=== PATIENT | male | born 1980 | race African-American/Black ===

== ENCOUNTER 2018-10-31 22:23 | Emergency (ER) | payer OTHER ==
[~2018-10-31] VITALS: Ht 188 cm; Wt 154.7 kg
[2018-10-31 22:23] VITALS: BP 170/91
[2018-10-31 22:46] LABS: BASO % 0 % (0-3); EOS # 0.1 x10^3/uL (0.0-0.7); EOS % 2 % (0-3); HEMATOCRIT 42.7 % (39.0-53.0); HEMOGLOBIN 14.5 g/dL (13.0-17.5); LYMPH # 1.7 x10^3/uL (1.0-4.8); LYMPH % 23 % (24-48); MEAN CORPUSCULAR HEMOGLOBIN 30 pg (25-35); MEAN CORPUSCULAR HGB CONC 34 g/dL (31-37); MEAN CORPUSCULAR VOLUME 87 fL (79-100); MONO # 0.8 x10^3/uL (0.0-1.1); MONO % 11 % (0-9); NEUT # 4.8 x10^3uL (1.8-7.7); NEUT % 64 % (31-73); PLATELET COUNT 249 x10^3/uL (140-400); RED BLOOD COUNT 4.93 x10^6/uL (4.30-5.70); RED CELL DISTRIBUTION WIDTH 15.3 % (11.5-14.5); WHITE BLOOD COUNT 7.5 x10^3/uL (4.0-11.0)
[2018-10-31 22:54] LABS: CALCIUM 8.9 mg/dL (8.5-10.1); CREATININE 1.5 mg/dL (0.7-1.3); GFR 52.1; POTASSIUM 3.9 mmol/L (3.5-5.1)
[2018-10-31 22:56] LABS: PROTHROMBIN TIME PATIENT 12.6 SEC (11.7-14.0)
[2018-10-31 22:59] LABS: ALBUMIN 4.1 g/dL (3.4-5.0); ALBUMIN/GLOBULIN RATIO 1.1 (1.0-1.7); MAGNESIUM 1.9 mg/dL (1.8-2.4); TOTAL BILIRUBIN 0.4 mg/dL (0.2-1.0); TOTAL PROTEIN 7.7 g/dL (6.4-8.2)
--- NOTE | 2018-10-31 23:20 | RAD ---
CT head without contrast: Reason for examination: Ataxia gait. No previous examinations for comparison. Axial images were obtained through the brain. No contrast was administered. Exposure: One or more of the following individualized dose reduction techniques were utilized for this examination: 1. Automated exposure control 2. Adjustment of the mA and/or kV according to patient size 3. Use of iterative reconstruction technique. Ventricular systems are symmetric and not abnormally dilated. No midline shift is seen. There is no evidence of intracranial hemorrhage. There is some encephalomalacia in the inferior right cerebellar hemisphere with evidence of previous craniotomy. No acute infarcts, masses or edema are seen. The paranasal sinuses are clear. No abnormalities are seen at the orbits. No acute bony abnormalities are seen. IMPRESSION: Encephalomalacia in the right cerebellar hemisphere inferiorly with adjacent craniotomy defect. Recommend clinical correlation. No acute intracranial abnormality evident. Electronically signed by: Zully Márquez MD (10/31/2018 11:18 PM) [facility]
--- NOTE | 2018-11-01 00:12 | PHYS DOC ---
Past Medical History Past Medical History: Diabetes-Type I, High Cholesterol, Hypertension, Stroke Past Surgical History: No Surgical History Alcohol Use: None Drug Use: None Adult General Chief Complaint Chief Complaint: NEURO SYMPTOMS/DEFICITS [facility] Patient is a 37-year-old male who presents with complaint of onset of what patient describes as unsteady gait that started at about 6 PM this evening. Patient states that he was concerned because he was treated for a cerebellar infarct last year. He denies any lateralizing weakness but does state that he feels a little bit off balance. He denies any speech deficits. Patient states his symptoms are a little bit improved over when they had first started. He denies any sensory deficits. He also denies any headache, fever, chest pain or shortness of breath. Review of Systems Review of Systems Constitutional: Denies fever or chills [] Eyes: Denies change in visual acuity, redness, or eye pain [] Respiratory: Denies cough or shortness of breath [] Cardiovascular: No additional information not addressed in HPI [] GI: Denies abdominal pain, nausea, vomiting or diarrhea [] Neurologic: Denies headache, focal weakness or sensory changes. Reports unsteady /ataxic gait. [] All other systems were reviewed and found to be within normal limits, except as documented in this note. Allergies Allergies Allergies Coded Allergies Type Severity Reaction Last Updated Verified No Known Drug Allergies 10/31/18 No Physical Exam Physical Exam Constitutional: Well developed, well nourished, no acute distress, non-toxic appearance. [] HENT: Normocephalic, atraumatic, bilateral external ears normal, oropharynx moist, no oral exudates, nose normal. [] Eyes: PERRLA, EOMI, conjunctiva normal, no discharge. [] Neck: Normal range of motion, no tenderness, supple. [] Cardiovascular: Regular rate and rhythm[] Lungs & Thorax: Bilateral breath sounds clear to auscultation [] Abdomen: Bowel sounds normal, soft, no tenderness. [] Skin: Warm, dry, no erythema, no rash. [] Extremities: No tenderness, no cyanosis, no clubbing, ROM intact. [] Neurologic: Alert and oriented X 3, normal motor function, normal sensory function, no focal deficits noted. [] Current Patient Data Vital Signs Vital Signs Date Time Temp Pulse Resp B/P (MAP) Pulse Ox O2 Delivery O2 Flow Rate FiO2 4/16/19 22:23 98.2 58 16 170/91 (117) 99 Room Air 98.2 Lab Values Laboratory Tests Test 10/31/18 22:29 10/31/18 22:35 Glucose (Fingerstick) 132 mg/dL (70-99) H White Blood Count 7.5 x10^3/uL (4.0-11.0) Red Blood Count 4.93 x10^6/uL (4.30-5.70) Hemoglobin 14.5 g/dL (13.0-17.5) Hematocrit 42.7 % (39.0-53.0) Mean Corpuscular Volume 87 fL (79-100) Mean Corpuscular Hemoglobin 30 pg (25-35) Mean Corpuscular Hemoglobin Concent 34 g/dL (31-37) Red Cell Distribution Width 15.3 % (11.5-14.5) H Platelet Count 249 x10^3/uL (140-400) Neutrophils (%) (Auto) 64 % (31-73) Lymphocytes (%) (Auto) 23 % (24-48) L Monocytes (%) (Auto) 11 % (0-9) H Eosinophils (%) (Auto) 2 % (0-3) Basophils (%) (Auto) 0 % (0-3) Neutrophils # (Auto) 4.8 x10^3uL (1.8-7.7) Lymphocytes # (Auto) 1.7 x10^3/uL (1.0-4.8) Monocytes # (Auto) 0.8 x10^3/uL (0.0-1.1) Eosinophils # (Auto) 0.1 x10^3/uL (0.0-0.7) Basophils # (Auto) 0.0 x10^3/uL (0.0-0.2) Prothrombin Time 12.6 SEC (11.7-14.0) Prothrombin Time INR 1.0 (0.8-1.1) Sodium Level 143 mmol/L (136-145) Potassium Level 3.9 mmol/L (3.5-5.1) Chloride Level 105 mmol/L (98-107) Carbon Dioxide Level 26 mmol/L (21-32) Anion Gap 12 (6-14) Blood Urea Nitrogen 25 mg/dL (8-26) Creatinine 1.5 mg/dL (0.7-1.3) H Estimated GFR (Cockcroft-Gault) 52.1 BUN/Creatinine Ratio 17 (6-20) Glucose Level 133 mg/dL (70-99) H Calcium Level 8.9 mg/dL (8.5-10.1) Magnesium Level 1.9 mg/dL (1.8-2.4) Total Bilirubin 0.4 mg/dL (0.2-1.0) Aspartate Amino Transferase (AST) 28 U/L (15-37) Alanine Aminotransferase (ALT) 49 U/L (16-63) Alkaline Phosphatase 69 U/L (46-116) Total Protein 7.7 g/dL (6.4-8.2) Albumin 4.1 g/dL (3.4-5.0) Albumin/Globulin Ratio 1.1 (1.0-1.7) Laboratory Tests 10/31/18 22:35 Laboratory Tests 10/31/18 22:35 EKG EKG [] Radiology/Procedures Radiology/Procedures [] Impressions: PROCEDURE: CT HEAD WO CONTRAST CT head without contrast: Reason for examination: Ataxia gait. No previous examinations for comparison. Axial images were obtained through the brain. No contrast was administered. Exposure: One or more of the following individualized dose reduction techniques were utilized for this examination: 1. Automated exposure control 2. Adjustment of the mA and/or kV according to patient size 3. Use of iterative reconstruction technique. Ventricular systems are symmetric and not abnormally dilated. No midline shift is seen. There is no evidence of intracranial hemorrhage. There is some encephalomalacia in the inferior right cerebellar hemisphere with evidence of previous craniotomy. No acute infarcts, masses or edema are seen. The paranasal sinuses are clear. No abnormalities are seen at the orbits. No acute bony abnormalities are seen. IMPRESSION: Encephalomalacia in the right cerebellar hemisphere inferiorly with adjacent craniotomy defect. Recommend clinical correlation. No acute intracranial abnormality evident. Electronically signed by: Zully Márquez MD (10/31/2018 11:18 PM) [facility] Course & Med Decision Making Course & Med Decision Making Pertinent Labs and Imaging studies reviewed. (See chart for details) Upon completion of workup, findings of workup have been reviewed with patient. I have recommended the patient being admitted to this facility for further evaluation along with evaluation by neurologist in the morning. Patient is refusing admission to this facility and is requesting to sign out AGAINST MEDICAL ADVICE. Patient states that he will just come back in the morning if symptoms are not resolved. Dragon Disclaimer Dragon Disclaimer This electronic medical record was generated, in whole or in part, using a voice recognition dictation system. Departure Departure Impression: Primary Impression: Ataxic gait Disposition: 07 AGAINST MEDICAL ADVICE Condition: GOOD Referrals: NO PCP (PCP) ANJALI SEN Jr. DO Nov 01, 2018 00:12
--- NOTE | 2018-11-01 05:09 | EKG ---
[facility] [address] [place] [address] Test Date: 2018-10-31 Test Time: 22:50:40 Pat Name: NILAM GARCIA Department: Room: Gender: M Through Operator: : 1980 Requested By: ANJALI SEN Order Number: [id number] Reading MD: Horace Watts Measurements Intervals [place] Rate: 59 P: 42 IL: 216 QRS: -11 QRSD: 112 T: 37 QT: 444 QTc: 444 Interpretive Statements SINUS RHYTHM LEFTWARD AXIS Electronically Signed On 11-06-2018 13:10:59 CDT by Horace Watts
== END 2018-11-01 00:38 | disposition left against medical advice (07) ==
LOC: ER 22:23
DX: R26.0 Ataxic gait (principal); G93.89 Other specified disorders of brain; E10.9 Type 1 diabetes mellitus without complications; E78.00 Pure hypercholesterolemia, unspecified; I10 Essential (primary) hypertension; Z86.73 Personal history of transient ischemic attack (TIA), and cerebral infarction without residual deficits
CPT/HCPCS: 36415; 70450; 80053; 82962; 83735; 85025; 85610; 93005; 99285-25